=== PATIENT | female | born 1945 | race Caucasian/White ===

== ENCOUNTER 2016-08-28 07:11 | Observation (INO) ==
[2016-08-28] MEDS ORDERED: ASPIRIN 325 MG TABLET PO STA (07:55)
--- NOTE | 2016-08-28 07:56 | Emergency Department Note ---
Jim Cedeño Brooke, am scribing for, and in the presence of, Yodit Reyes DO 07:38 . IEric Debra, DO, personally performed the services described in this documentation, ascribed by Iris Fernandez in my presence, and it is both accurate and complete [id number] . Arrival - Arrival Chief Complaint: Chest Pain Stated Complaint: chest pain ED Nursing Triage Note: Pt c/o left sided chest pain and shortness of breath x3 days, but states this morning she woke at 0300 with pain worsening. states pain is worse when bending over. Mode of Arrival: Ambulatory Limitations: No Limitations Source: Patient, RN Notes Reviewed Time Seen by Provider: 08/28/16 07:30 - History of Present Illness HPI Narrative: Patient is a 70 year old female who presents to the ED with c/o chest pain that has been ongoing for the past three days. Patient says the pain is currently located on the left side of her chest but states that "it seems to move around. " She says the pain is a 2 out of 10 on the pain scale. She says the pain did wake her from her sleep this morning. She normally sleeps on the left side and says that it feels like muscle pain. She has been taking Tylenol without any relief. Patient denies history of heart disease or [place]. She says she has not taken her daily medications, yet, but states that she does normally take ASA daily. She denies any nausea, vomiting, shortness or breath, abdominal pain, or recent illness. There are no other complaints. Patient has PMHx of HTN, NIDDM, and dyslipidemia. Her Primary Care Provider is Dr. Ricardo Villalpando. Onset (ago): day(s) (3) Severity scale (1-10): 2 Date of Last Menstrual Period: menopause Allergies/Adverse Reactions: Allergies Allergy/AdvReac Type Severity Reaction Status Date / Time penicillin G Allergy RASH Verified 08/28/16 07:18 Home Medications: Home Medications Medication Instructions Recorded Confirmed Type Aspirin Chew Tab 81 mg PO DAILY 03/02/15 03/02/15 History Biotin 1,000 mcg PO DAILY 03/02/15 03/02/15 History Calcium Carbonate/Vitamin D3 1 tablet PO DAILY 03/02/15 03/02/15 History [Calcium 600 + D Tablet] Enalapril Tab [Vasotec Tab] 5 mg PO DAILY 03/02/15 03/02/15 History Glucosamine 500 mg PO DAILY 03/02/15 03/02/15 History Lovastatin 20 mg PO BEDTIME 03/02/15 03/02/15 History Multivitamin [Multivitamin Chew 1 tablet PO DAILY 03/02/15 03/02/15 History Tab] amLODIPine [Norvasc] 5 mg PO DAILY 03/02/15 03/02/15 History glyBURIDE [Diabeta] 5 mg PO BID W/MEALS 03/02/15 03/02/15 History metFORMIN [Glucophage] 1,000 mg PO BID W/MEALS 03/02/15 03/02/15 History Review of System - Review of System 12 point system: reviewed and no additional remarkable complaints except as stated - Review of System Constitutional: Absent: fever Respiratory: Absent: respiratory distress Cardiovascular: Present: chest pain (left side) Gastrointestinal: Absent: abdominal pain, nausea, vomiting Skin: Absent: rash Medical,Surgical,& Family Hx - Medical History Cardio: History of: Hypertension Endocrine: History of: Diabetes Mellitus (NIDDM), Dyslipidemia - Surgical History Abdominal Surgeries: Surgical HX of: Appendectomy - Social History Smoking Status: Never smoker Frequency of Alcohol Use: None Type of Drug Use: None Exam Vital Signs: Vital Signs Temperature 99.2 F 08/28/16 07:14 Pulse Rate 95 H 08/28/16 08:00 Respiratory Rate 18 08/28/16 08:00 Blood Pressure 159/93 08/28/16 08:00 O2 Sat by Pulse Oximetry 97 08/28/16 08:00 - General General appearance: alert, in no apparent distress - Head Head exam: Present: atraumatic, normocephalic - Eye Eye exam: Present: normal appearance, PERRL, EOMI - ENT ENT exam: Present: normal exam - Chest Chest inspection: Present: normal inspection - Respiratory Respiratory exam: Present: normal lung sounds bilaterally - Cardiovascular Cardiovascular exam: Present: regular rate, normal rhythm, normal heart sounds - Abdominal Exam Abdominal exam: Present: distention (mild). Absent: soft, tenderness - Extremities Exam Extremities exam: Present: normal inspection. Absent: pedal edema - Back Exam Back exam: Present: normal inspection - Neurological Exam Neurological exam: Present: alert, oriented X3, CN II-XII intact - Psychiatric Psychiatric exam: Present: normal affect, normal mood - Skin Skin exam: Present: warm, dry, intact, normal color Course Course Narrative: spoke with dr Gaviria who will admit pt for Dr Villalpando Results - Labs CBC & BMP: 08/28/16 07:31 08/28/16 07:31 Lab Results: I have reviewed the patients labs Labs: Laboratory Tests 08/28/16 08/28/16 07:31 07:31 MCV 84.8 L Anion Gap 15.1 H Glucose 232 H Globulin 3.8 H Albumin/Globulin Ratio 1.0 L - EKG EKG results: interpreted by ERMD, WNL, sinus rhythm - Diagnostic Findings Procedure: Chest x-ray: report reviewed by me (No acute cardiopulmonary process demonstrated.) Disposition Clinical Impression: Atypical chest pain Case discussed with: patient Disposition: Still a Patient Condition: Stable Time of Disposition: 09:21
--- NOTE | 2016-08-28 07:58 | EKG Report ---
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
[2016-08-28 08:04] LABS: Basophils % 0.4 % (0.0-0.8); Eosinophils # 0.1 10*3/uL (0.0-0.87); Eosinophils % 1.7 % (0.00-10.9); Hematocrit 38.5 VOL% (35.7-47.0); Immature Granulocytes % 0.6 %; Immature Granulocytes Absolute 0.05 #; Lymphocytes # 1.7 10*3/uL (1.4-4.0); Lymphocytes % 21.5 % (21.3-54.2); Mean Corpuscular HGB Conc 33.8 GM/DL (32-36); Mean Corpuscular Hemoglobin 29 PG (27-34); Mean Corpuscular Volume 84.8 FL (87-102); Monocytes # 0.5 10*3/uL (0.11-0.8); Monocytes % 6.9 % (1.7-12.7); Neutrophils # 5.4 10*3/uL (1.4-7.4); Neutrophils % 68.9 % (38.7-73.9); Platelet Count 331 T/CUMM (130-400); Red Blood Count 4.54 MC/CUMM (3.8-5.5); Red Cell Distribution Width 12.9 % (9.3-17.3); White Blood Count 7.8 T/CUMM (4-12)
[2016-08-28] MEDS ORDERED: ASPIRIN 325 MG TABLET ONE (08:12)
[2016-08-28 08:17] LABS: Partial Thromboplastin Time 29.6 SECS (0-40)
--- NOTE | 2016-08-28 08:17 | XRay Report ---
XR chest 1V portable Indication: SOB Comparison: Chest x-ray dated May 23, 2012 Technique: Single frontal view of the chest Findings: Heart size appears within normal limits. No focal consolidation, pleural effusion, or pneumothorax. Osseous and surrounding soft tissue structures appear grossly unchanged. IMPRESSION: No acute cardiopulmonary process demonstrated. PROCEDURE INTERPRETED AT [facility] DEPARTMENT OF RADIOLOGY Final Report Signed by: Dr Aidan Greenberg
[2016-08-28 08:33] LABS: Alanine Aminotransferase 20 U/L (13-56); Albumin 3.8 G/DL (3.4-5.0); Alkaline Phosphatase 79 U/L (45-117); Aspartate Amino Transferase 15 U/L (0-37); Bilirubin,Total < 0.39 MG/DL (0.2-1.0); Blood Urea Nitrogen 15 MG/DL (7-18); Calcium 9.1 MG/DL (8.5-10.1); Glucose 232 MG/DL (74-106); Osmolality,Calculated 282.7 MOS/KG (273-304); Potassium 4.1 MMOL/L (3.5-5.1); Sodium 138 MMOL/L (136-145); Total Protein 7.6 G/DL (6.4-8.3); Troponin I Only < 0.015 NG/ML (0.00-0.045)
[2016-08-28] MEDS ORDERED: ONDANSETRON 4 MG/2 ML VIAL IV PRN (09:22)
[2016-08-28] MEDS ORDERED: ACETAMINOPHEN 325 MG TABLET PO PRN (09:22)
[2016-08-28] MEDS: SODIUM CHLORIDE 0.9% 1,000 ML IV SCH ×3 (12:19→21:16)
[2016-08-28] MEDS: ENOXAPARIN 40 MG/0.4 ML SYRINGE SUBCUT SCH (12:20)
[2016-08-28 13:17] LABS: Troponin I Only < 0.015 NG/ML (0.00-0.045)
--- NOTE | 2016-08-28 15:28 | Internal Med History&Physical ---
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 Mena is a 70 year old female patient of Dr. Ricardo Villalpando with history of HTN, DM, dyslipidemia, who presented with mid sternal chest pain that began about 3 days ago acutely. She denies activities of heavy labor. With this, she has had shortness of breath. She denies asthma, she denies heart disease. The pain began upper right chest and is now in sternal area. Cardiac enzymes are negative. Atypical chest pain and low suspicion of cardiac problem, but will consult Cardiology for patient's and family's peace of mind. Also, will order V/Q scan to rule out PE. This chest pain is likely musculoskeletal. Will order Toradol. She denies history of acid reflux. Home Medications Medication Instructions Recorded Confirmed Type Biotin 1,000 mcg PO DAILY 03/02/15 08/28/16 History Calcium Carbonate/Vitamin D3 1 tablet PO DAILY 03/02/15 08/28/16 History [Calcium 600 + D Tablet] Enalapril Tab [Vasotec Tab] 5 mg PO DAILY 03/02/15 08/28/16 History Lovastatin 20 mg PO BEDTIME 03/02/15 08/28/16 History Multivitamin [Multivitamin Chew 1 tablet PO DAILY 03/02/15 08/28/16 History Tab] amLODIPine [Norvasc] 5 mg PO DAILY 03/02/15 08/28/16 History Aspirin [Aspirin EC] 81 mg PO DAILY 08/28/16 08/28/16 History Glucosamine 1 tablet PO DAILY 08/28/16 08/28/16 History Metformin HCl 1,000 mg PO BID 08/28/16 08/28/16 History glipiZIDE [Glipizide] 10 mg PO QA 08/28/16 08/28/16 History glipiZIDE [Glipizide] 20 mg PO BEDTIME 08/28/16 08/28/16 History Allergies Allergy/AdvReac Type Severity Reaction Status Date / Time penicillin G Allergy RASH Verified 08/28/16 07:18 Medical,Surgical,& Family Hx - Medical History Cardio: History of: Hypertension Endocrine: History of: Diabetes Mellitus (NIDDM), Dyslipidemia Gastrointestinal: History of: Hemorrhoids Musculoskeletal: History of: Musculoskeletal Problems (carpal wei and left foot) - Surgical History Abdominal Surgeries: Surgical HX of: Appendectomy Reproductive Surgeries: Surgical HX of;: Gynecologic Surgery ( x3) - Family History Family History: Reports;: Family Diabetes (Aunt had diabetes), Family Heart Disease (Father), Additional Family History (sister had aneurysm) - Social History Smoking Status: Never smoker Frequency of Alcohol Use: None Type of Drug Use: None Functional capacity: independent ambulation - Cardiovascular Cardiovascular: Present: chest pain at rest, dyspnea - Gastrointestinal Gastrointestinal: Absent: heartburn - Musculoskeletal Musculoskeletal: Present: other (sternal chest pain) Exam - Constitutional Vitals: Period Temp Pulse Resp BP Sys/Melendez Pulse Ox Last 24 Hr 96.1 F-99.2 F 82-88 18-20 125-183/56-80 98-98 General appearance: no acute distress - Head Head exam: Present: normocephalic - Eye Eye exam: Present: EOMI - Respiratory Respiratory exam: Present: clear to auscultation bilaterally. Absent: rales, rhonchi, wheezes - Cardiovascular Cardiovascular exam: Present: regular rate and rhythm, other (reproducible sternal chest wall pain) - GI/Abdominal GI/Abdominal exam: Present: normal bowel sounds, soft. Absent: tenderness - Extremities Exam Extremities exam: Absent: edema - Neurological Exam Neurological exam: Present: alert, oriented X3, CN II-XII intact - Psychiatric Psychiatric exam: Present: normal affect, normal mood - Skin Skin exam: Present: warm, dry Results - Labs CBC & BMP: 08/28/16 07:31 08/28/16 07:31 - EKG EKG shows: sinus rhythm - Diagnostic Findings Procedure: Chest x-ray: image reviewed by me, report reviewed by me
[2016-08-28] MEDS ORDERED: DEXTROSE 50% 25 GM/50 ML VIAL IV PRN (15:32)
[2016-08-28] MEDS ORDERED: GLUCAGON 1 MG VIAL IM PRN (15:32)
--- NOTE | 2016-08-28 16:45 | Cardiology Consult Note ---
Assessment and Plan (1) Atypical chest pain Status: Acute Assessment and plan: Her chest pain clinically and on examination is muscle skeletal nature and noncardiac. Her cardiac enzymes/biomarkers were nondetectable and her ECG is normal. She has chest wall tenderness. All this is evidence that points away from coronary artery disease or ischemia. Certainly this is the kind of patient that does not need in-hospital evaluation father. Certainly a cardiac perfusion study could be carried out as an outpatient. She does have Toradol ordered and we will follow-up. 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 Mena is a 70 year old female who is admitted for the last several days if not longer having chest pain. She has described several days ago having right shoulder type pain and then taking Mobic and resolving. She then developed some almost migratory pain across her chest that was somewhat sharp may be a little heavy but no shortness of breath nausea diaphoresis. For the most part it was persistent and constant for at least 48-72 hours. The pain is exacerbated to some degree by deep breath certain types of motion reaching forward. It is nonradiating though into her arms or elsewhere. No other symptoms. She has had no trauma to her chest. She has had no prior cardiac disease or chest pain. She does have some risk factors for heart disease including dyslipidemia hypertension and diabetes. Her ECG is normal the 80 evidence for ischemia. Her cardiac biomarkers/ troponins are nondetectable. At present she notices some chest pain she takes a deep breath and with some motion but generally feels better. She has Toradol already ordered for the pain. CC: Ricardo Villalpando, DO - Home Medications and Allergies Home Medications: Home Medications Medication Instructions Recorded Confirmed Type Biotin 1,000 mcg PO DAILY 03/02/15 08/28/16 History Calcium Carbonate/Vitamin D3 1 tablet PO DAILY 03/02/15 08/28/16 History [Calcium 600 + D Tablet] Enalapril Tab [Vasotec Tab] 5 mg PO DAILY 03/02/15 08/28/16 History Lovastatin 20 mg PO BEDTIME 03/02/15 08/28/16 History Multivitamin [Multivitamin Chew 1 tablet PO DAILY 03/02/15 08/28/16 History Tab] amLODIPine [Norvasc] 5 mg PO DAILY 03/02/15 08/28/16 History Aspirin [Aspirin EC] 81 mg PO DAILY 08/28/16 08/28/16 History Glucosamine 1 tablet PO DAILY 08/28/16 08/28/16 History Metformin HCl 1,000 mg PO BID 08/28/16 08/28/16 History glipiZIDE [Glipizide] 10 mg PO QAM 08/28/16 08/28/16 History glipiZIDE [Glipizide] 20 mg PO BEDTIME 08/28/16 08/28/16 History Allergies/Adverse Reactions: Allergies Allergy/AdvReac Type Severity Reaction Status Date / Time penicillin G Allergy RASH Verified 08/28/16 07:18 Review of systems: Constitutional: Denies anorexia, chills, fatigue, fever, frequent falls, night sweats, weight gain, weight loss Eyes: Denies visual changes or loss of vision Ears: Denies decreased hearing, vertigo Nose, mouth and throat: Denies dysphagia, epistaxis, headaches, neck pain, tongue swelling, Neck: Denies thyromegaly or masses. No stiffness. Cardiovascular: as per HPI Respiratory: Denies cough, dyspnea, hemoptysis, dyspnea on exertion, wheezing, snoring Gastrointestinal: Denies abdominal pain, constipation, dyspepsia, dysphagia, hematemesis, hematochezia, melena, nausea, vomiting Genitourinary: Denies dysuria, hematuria, nocturia Musculoskeletal: Denies arthralgias, joint swelling, muscle weakness, myalgias Neurological: denies abnormal gait, abnormal speech, confusion, convulsions, frequent falls, headaches, memory loss, syncope Psychiatric: Denies anxiety, confusion, depression Endocrine: Denies cold intolerance, fatigue, heat intolerance Hematologic/Lymphatic: Denies easy bleeding, easy bruising Dermatologic: Denies Rash, itching, shingles Medical,Surgical,& Family Hx - Medical History Cardio: History of: Hypertension Endocrine: History of: Diabetes Mellitus (NIDDM), Dyslipidemia Gastrointestinal: History of: Hemorrhoids Musculoskeletal: History of: Musculoskeletal Problems (carpal wei and left foot) - Surgical History Abdominal Surgeries: Surgical HX of: Appendectomy Reproductive Surgeries: Surgical HX of;: Gynecologic Surgery ( x3) - Family History Family History: Reports;: Family Diabetes (Aunt had diabetes), Family Heart Disease (Father), Additional Family History (sister had aneurysm) - Social History Smoking Status: Never smoker Frequency of Alcohol Use: None Type of Drug Use: None Marital Status: Lives With:: Spouse Functional capacity: independent ambulation Physical Examination Vital Signs Temp Pulse Resp BP Pulse Ox 99.2 F 91 H 16 145/107 99 08/28/16 07:14 08/28/16 07:14 08/28/16 07:14 08/28/16 07:14 08/28/16 07:14 Other: General appearance: Over weight, no acute distress Head exam: normal inspection, atraumatic Eye exam: Pupils are equal and reactive. EOMI. There is no trauma. Ear exam: Anatomically normal. Normal auditory acuity to conversation. Oral exam: No significant oral lesions. Neck exam: normal inspection no JVD. No carotid bruit. Trachea is in midline. Respiratory exam: clear to auscultation bilaterally posteriorly and anteriorly with good air movement. No rales, rhonchi or wheezes. Cardiovascular exam: regular rate and rhythm, no murmur or gallop or rub. No precordial lift. No bruits over the major arteries. Chest wall/torso: Anatomically normal. No deformity. Does have tenderness palpation over the anterior chest wall that reproduces her pain. Peripheral Pulses: 2+ throughout. GI/Abdominal exam: normal bowel sounds, soft and nontender, no abdominal bruits or pulsatile masses. Musculoskeletal/Extremities exam: normal inspection without edema or cyanosis. No deformities or trauma. Neurological exam: alert, oriented X3. There is no gross neurologic deficits. Psychiatric exam: normal affect, normal mood. Cognitive function is grossly intact. Skin exam: normal color, warm. No rashes or other skin lesions. Result/EKG - Labs CBC & BMP: 08/28/16 07:31 08/28/16 07:31 Lab Results: I have reviewed the past 24 hour labs Labs: Laboratory Results - last 24 hr 08/28/16 11:54 Total Creatine Kinase 48 CK-MB (CK-2) 1.1 Troponin I < 0.015 - Impressions Impressions: ECG is within normal limits in sinus rhythm.
[2016-08-28] MEDS: ASPIRIN EC 81 MG TABLET PO SCH (17:30)
[2016-08-28] MEDS: INSULIN REGULAR 100 UNIT/ML SUBCUT SCH ×2 (18:46→21:30)
[2016-08-28] MEDS: KETOROLAC 15 MG/1 ML VIAL IV SCH ×2 (18:46→21:16)
[2016-08-28] MEDS: amLODIPine 5 MG TABLET PO SCH (18:46)
--- NOTE | 2016-08-28 18:54 | Nuclear Medicine Report ---
Nuclear medicine ventilation/perfusion scan Indication: Shortness of breath, chest pain Findings: Ventilation scan: The patient received 40 mCi of 90 9M technetium DTPA aerosolized. There is normal distribution of radiotracer in both lungs. Perfusion scan: Patient received 5 mCi of 90 9M technetium MAA intravenously. There is normal in distribution of radiotracer in both lungs without evidence of segmental or greater defects. Impression: Normal nuclear medicine ventilation perfusion scan. This indicates low probability for pulmonary embolism. PROCEDURE INTERPRETED AT [facility] DEPARTMENT OF RADIOLOGY Final Report Signed by: Dr. Julio C Baumann
[2016-08-28] MEDS ORDERED: LOVASTATIN 20 MG TABLET PO SCH (21:00)
[2016-08-28] MEDS ORDERED: glipiZIDE 10 MG TABLET PO SCH (21:00)
[2016-08-28] MEDS: DOCUSATE SODIUM 100 MG CAPSULE PO SCH (21:17)
[2016-08-29] MEDS: KETOROLAC 15 MG/1 ML VIAL IV SCH ×2 (04:04→09:59)
[2016-08-29] MEDS: SODIUM CHLORIDE 0.9% 1,000 ML IV SCH ×2 (05:00→15:17)
[2016-08-29 05:46] LABS: Calcium 8.6 MG/DL (8.5-10.1); Osmolality,Calculated 291.7 MOS/KG (273-304); Potassium 4.3 MMOL/L (3.5-5.1)
[2016-08-29 06:02] LABS: Magnesium 1.8 MG/DL (1.8-2.4); Risk Ratio 2.47
--- NOTE | 2016-08-29 08:01 | EKG Report ---
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
[2016-08-29 08:42] VITALS: BP 159/73
[2016-08-29] MEDS ORDERED: ENALAPRIL 2.5 MG TABLET PO SCH (09:00)
[2016-08-29] MEDS ORDERED: PANTOPRAZOLE 40 MG TABLET PO SCH (09:00)
[2016-08-29] MEDS ORDERED: glipiZIDE 10 MG TABLET PO SCH (09:00)
[2016-08-29] MEDS: DOCUSATE SODIUM 100 MG CAPSULE PO SCH (09:57)
[2016-08-29] MEDS: ASPIRIN EC 81 MG TABLET PO SCH (09:57)
[2016-08-29] MEDS: amLODIPine 5 MG TABLET PO SCH (09:58)
[2016-08-29] MEDS: INSULIN REGULAR 100 UNIT/ML SUBCUT SCH ×2 (10:02→11:25)
[2016-08-29] MEDS: ENOXAPARIN 40 MG/0.4 ML SYRINGE SUBCUT SCH (10:07)
--- NOTE | 2016-08-29 11:23 | Cardiology Progress Note ---
Assessment and Plan (1) Atypical chest pain Status: Acute Assessment and plan: Her chest pain is noncardiac and has resolved. He is certainly musculoskeletal. Further evaluation at this time. 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 Current Visit: Yes (4) Hypertension Status: Chronic Assessment and plan: Stable. Current Visit: Yes Qualifiers: Hypertension type: essential hypertension Qualified Code(s): I10 - Essential (primary) hypertension Cardiology - PN: Subj Interval history: Patient is doing well with no chest pain shortness of breath other symptomatology. After the Toradol was given she states all of her pain resolved she has felt well since then. Her cardiac enzymes were nondetectable and her ECG today is normal. Her symptomatology is noncardiac and I do not think any further evaluation needed. Her lung scan was normal without evidence of PE. At this time do not think any further cardiac evaluation is needed. I did discuss this with the patient and her . If she was to have recurrent symptoms of pain or shortness of breath not felt to be musculoskeletal as this is then further evaluation certainly would be indicated. We will sign off at this time please let us know we can be any further help her service. Exam (Progress Note) - Constitutional Vitals: Period Temp Pulse Resp BP Sys/Melendez Pulse Ox Last 24 Hr 96.1 F-98.3 F 66-88 16-20 131-183/65-82 96-100 Exam: General appearance: Over weight, no acute distress HEENT: Atraumatic normocephalic. Neck exam: normal inspection no JVD. No carotid bruit. Trachea is in midline. Respiratory exam: clear to auscultation bilaterally posteriorly and anteriorly with good air movement. No rales, rhonchi or wheezes. Cardiovascular exam: regular rate and rhythm, no murmur or gallop or rub. No precordial lift. No bruits over the major arteries. Chest wall/torso: Her chest wall today is completely nontender. Peripheral Pulses: 2+ throughout. GI/Abdominal exam: normal bowel sounds, soft and nontender, no abdominal bruits or pulsatile masses. Musculoskeletal/Extremities exam: normal inspection without edema or cyanosis. No deformities or trauma. Neurological exam: alert, oriented X3. There is no gross neurologic deficits. Psychiatric exam: normal affect, normal mood. Cognitive function is grossly intact. Skin exam: normal color, warm. No rashes or other skin lesions. Result/EKG - Labs CBC & BMP: 08/28/16 07:31 08/29/16 05:00 Lab Results: I have reviewed the past 24 hour labs Labs: Laboratory Results - last 24 hr 08/28/16 08/28/16 08/28/16 11:54 17:34 20:08 Sodium Potassium Chloride Carbon Dioxide Anion Gap BUN Creatinine GFR Calculation BUN/Creatinine Ratio Glucose POC Glucose 212 H 156 H Calculated Osmolality Calcium Magnesium Total Creatine Kinase 48 CK-MB (CK-2) 1.1 Troponin I < 0.015 B-Natriuretic Peptide Triglycerides Cholesterol LDL Cholesterol VLDL Cholesterol HDL Cholesterol Heart Disease Risk Ratio 08/29/16 08/29/16 08/29/16 05:00 05:00 05:00 Sodium 145 Potassium 4.3 Chloride 111 H Carbon Dioxide 25 Anion Gap 13.3 BUN 13 Creatinine 0.80 GFR Calculation 74 BUN/Creatinine Ratio 16.00 Glucose 165 H POC Glucose Calculated Osmolality 291.7 Calcium 8.6 Magnesium 1.8 Total Creatine Kinase CK-MB (CK-2) Troponin I B-Natriuretic Peptide 75 Triglycerides 150 Cholesterol 141 LDL Cholesterol 73.0 VLDL Cholesterol 30.0 HDL Cholesterol 57 Heart Disease Risk Ratio 2.47 - Impressions Impressions: ECG normal sinus rhythm and within normal limits.
--- NOTE | 2016-08-29 14:51 | Discharge Summary ---
Hospital Course - Hospital Course Hospital Course: Ms. Mena is a 70 year old female patient of Dr. Ricardo Villalpando with history of HTN, DM, dyslipidemia, who presented with mid sternal chest pain that began about 3 days ago acutely. She denies activities of heavy labor. With this, she has had shortness of breath. She denies asthma, she denies heart disease. The pain began upper right chest and is now in sternal area. Cardiac enzymes are negative. Atypical chest pain and low suspicion of cardiac problem, but will consult Cardiology for patient's and family's peace of mind. Also, will order V/Q scan to rule out PE. This chest pain is likely musculoskeletal. Will order Toradol. She denies history of acid reflux. She felt better overnight. V/Q scan negative. Toradol resolved her pain. She will be discharged home on Mobic. Diagnosis - Discharge Diagnosis (1) Diabetes Status: Chronic (2) Dyslipidemia Status: Chronic (3) Hypertension Status: Chronic (4) Shortness of breath Status: Resolved (5) Atypical chest pain Status: Resolved (6) Musculoskeletal chest pain Status: Resolved Discharge Plan - Discharge Data Disposition: Disch To Home/Self Care Condition at Discharge: Stable Discharge Diet: heart healthy, low fat, low cholesterol Activity: increase activity as tolerated - Discharge Medications New Acetaminophen Tab [Tylenol Tab] 650 mg PO Q6H PRN #0 tablet PRN Reason: Fever > 100.4 Or Headache Docusate Sodium Cap [Colace Cap] 100 mg PO BID capsule Meloxicam [Mobic] 15 mg PO AC BREAKFAST #30 tablet Continue amLODIPine [Norvasc] 5 mg PO DAILY Lovastatin 20 mg PO BEDTIME Calcium Carbonate/Vitamin D3 [Calcium 600 + D Tablet] 1 tablet PO DAILY Multivitamin [Multivitamin Chew Tab] 1 tablet PO DAILY Enalapril Tab [Vasotec Tab] 5 mg PO DAILY Biotin 1,000 mcg PO DAILY Aspirin [Aspirin EC] 81 mg PO DAILY glipiZIDE [Glipizide] 20 mg PO BEDTIME glipiZIDE [Glipizide] 10 mg PO QAM Glucosamine 1 tablet PO DAILY Changed Metformin HCl 500 mg PO TID W/MEALS #90 - Follow Up or Referral Follow Up: Ricardo Villalpando DO [Primary Care Provider] - - Forms/Instructions Additional Discharge Instructions: Take Metformin 500 mg tid with meals. Take Mobic 15 mg daily with breakfast. Follow up with Dr. Villalpando in clinic within 1-2 weeks. Exam - Constitutional Vitals: Period Temp Pulse Resp BP Sys/Melendez Pulse Ox Last 24 Hr 97.7 F-98.3 F 66-82 16-18 131-174/65-82 96-100 General appearance: no acute distress - Respiratory Respiratory exam: Present: clear to auscultation bilaterally. Absent: rhonchi, wheezes - Cardiovascular Cardiovascular exam: Present: regular rate and rhythm - Extremities Exam Extremities exam: Absent: edema - Neurological Exam Neurological exam: Present: alert, oriented X3 - Psychiatric Psychiatric exam: Present: normal mood - Skin Skin exam: Present: warm, dry Discharge Results Labs on day of discharge: Labs from last 24 hours 08/29/16 08/29/16 08/29/16 05:00 05:00 05:00 Sodium 145 Potassium 4.3 Chloride 111 H Carbon Dioxide 25 Anion Gap 13.3 BUN 13 Creatinine 0.80 GFR Calculation 74 BUN/Creatinine Ratio 16.00 Glucose 165 H POC Glucose Calculated Osmolality 291.7 Calcium 8.6 Magnesium 1.8 B-Natriuretic Peptide 75 Triglycerides 150 Cholesterol 141 LDL Cholesterol 73.0 VLDL Cholesterol 30.0 HDL Cholesterol 57 Heart Disease Risk Ratio 2.47 08/28/16 08/28/16 20:08 17:34 Sodium Potassium Chloride Carbon Dioxide Anion Gap BUN Creatinine GFR Calculation BUN/Creatinine Ratio Glucose POC Glucose 156 H 212 H Calculated Osmolality Calcium Magnesium B-Natriuretic Peptide Triglycerides Cholesterol LDL Cholesterol VLDL Cholesterol HDL Cholesterol Heart Disease Risk Ratio DS: Provider Date of admission: 08/28/16 09:22 Primary care physician: Ricardo Villalpando DO Attending physician on admission: Ricardo Villalpando DO Discharging clinician: Vicky Gaviria DO Expected date of discharge: 08/29/16
== END 2016-08-29 16:05 | disposition home or self-care (01) ==
LOC: N.ED 07:11 → N.EDINP 07:11 → N.4E 11:21
PROVIDERS: ADMIT Family Medicine; ATTEND Family Medicine